=== PATIENT | male | born 1955 | race Caucasian/White ===

== ENCOUNTER 2016-06-19 10:40 | Emergency (ER) | payer MEDICARE, MEDICAID ==
[~2016-06-19] VITALS: Ht 175.3 cm; Wt 82.6 kg
--- NOTE | 2016-06-19 11:16 | PHYS DOC ---
Past Medical History Past Medical History: COPD, High Cholesterol, Hypertension, Other Additional Past Medical Histor: R ARM ROTATOR CUFF TEAR Past Surgical History: Other Additional Past Surgical Histo: BILATERAL ELBOW SX, BILATERAL HAND SX, LIPOMA REMOVED - BACK Alcohol Use: None Drug Use: None Adult General Chief Complaint Chief Complaint: NECK INJURY [facility] HPI Patient is a 61 year old male presents emergency room with persistent mid neck pain that is both midline and off to the right hand side secondary to a slip/ fall approximately 2 months ago. Patient states he also injured his right shoulder and has a history of rotator cuff problems with his right shoulder. Patient states he saw his orthopedic doctor and will have an MRI performed on his right shoulder. Patient states he has not seen his primary care doctor about his neck pain. Patient denies any previous history of spinal column or spinal cord injuries. He denies any history of neuromuscular diseases. Patient states that he has increased pain with right lateral rotation of his neck. He states that there are times at night when he will move his head too much to the right hand side and felt sudden, shooting pain to the right side of his neck that often causes him to feel nauseous. Patient states that the pain radiates up to the back of his scalp and down towards his right shoulder when this occurs. Review of Systems Review of Systems Constitutional: Denies fever or chills [] Eyes: Denies change in visual acuity, redness, or eye pain [] HENT: Denies nasal congestion or sore throat [] Respiratory: Denies cough or shortness of breath [] Cardiovascular: No additional information not addressed in HPI [] GI: Denies abdominal pain, nausea, vomiting, bloody stools or diarrhea [] : Denies dysuria or hematuria [] Musculoskeletal: Denies back pain or joint pain [] Integument: Denies rash or skin lesions [] Neurologic: Denies headache, focal weakness or sensory changes [] Endocrine: Denies polyuria or polydipsia [] Allergies Allergies Allergies Coded Allergies Type Severity Reaction Last Updated Verified morphine Allergy Intermediate Hives 06/19/16 Yes hydromorphone Adverse Reaction Intermediate Nausea and Vomiting 06/19/16 Yes Physical Exam Physical Exam Constitutional: Well developed, well nourished, no acute distress, non-toxic appearance. [] HENT: Normocephalic, atraumatic, bilateral external ears normal, oropharynx moist, no oral exudates, nose normal. [] Eyes: PERRLA, EOMI, conjunctiva normal, no discharge. [] Neck: Patient's neck is normal in appearance. There is midline and right paraspinous tenderness at the level of C3, C4 and to lesser extent C5. There is no palpable defect, deformity or active spasm. Cardiovascular:Heart rate regular rhythm, no murmur [] Lungs & Thorax: Bilateral breath sounds clear to auscultation [] Abdomen: Bowel sounds normal, soft, no tenderness, no masses, no pulsatile masses. [] Skin: Warm, dry, no erythema, no rash. [] Back: No tenderness, no CVA tenderness. [] Extremities: No tenderness, no cyanosis, no clubbing, ROM intact, no edema. [] Neurologic: Alert and oriented X 3, normal motor function, normal sensory function, no focal deficits noted. [] Psychologic: Affect normal, judgement normal, mood normal. [] Current Patient Data Vital Signs Vital Signs Date Time Temp Pulse Resp B/P Pulse Ox O2 Delivery O2 Flow Rate FiO2 06/19/16 12:55 72 16 129/81 95 Room Air 06/19/16 10:50 97.8 97.8 EKG EKG [] Radiology/Procedures Radiology/Procedures [facility] [address] [place], [place] [id number] IMAGING REPORT Signed PATIENT: NATY FULTON ACCOUNT: [id number] : 1955 LOCATION: ER AGE: 61 SEX: M EXAM STATUS: REG ER ORD. PHYSICIAN: JOSE ENRIQUE SEBASTIAN REASON: perisitent pain to C4/5 after fall 04/19/16 PROCEDURE: CERVICAL SPINE WO CONTRAST MR CERVICAL SPINE HISTORY:NO PRIORS..PT C/O NECK PAIN WITH RIGHT SHOULDER PAIN SINCE FALL MAR 2016Reason: perisitent pain to C4/5 after fall 04/19/16 / Spl. Instructions: / History: Technique: Sagittal T2, sagittal STIR, sagittal T1, and axial gradient echo imaging was obtained of the cervical spine. FINDINGS: Vertebral body heights are maintained. There is some degenerative endplate edema the level of C6-C7. Bone marrow signal is otherwise within normal limits. The cord is normal in caliber with no signal abnormality identified. Visualized soft tissues of the neck are within normal limits. At C2-3 there is bilateral facet arthropathy but no spinal stenosis. At C3-4 there is no spinal stenosis. At C4-5 there is left facet arthropathy causing mild left foraminal stenosis. There is very subtle degenerative anterolisthesis. At C5-6 there is moderate disc height loss and very subtle retrolisthesis of C5 on C6. Bilateral uncovertebral hypertrophy is noted which is more pronounced on the left causing moderate to severe left foraminal stenosis. Correlate for C6 radiculopathy symptoms. Uncovertebral hypertrophy also causes mild mass effect upon the left aspect of the cord. At C6-C7 there is degenerative disc disease with reactive endplate edema. There is bilateral uncovertebral hypertrophy causing moderate left foraminal stenosis. At C7-T1 there is no spinal stenosis. Impression: - Degenerative disc disease greatest at C5-6 where there is moderate to severe left foraminal stenosis. Correlate for left C6 radiculopathy symptoms. Details as above. - Mild degenerative disc disease at C6-C7 where there is moderate left foraminal stenosis. Correlate for left C7 radiculopathy. Electronically signed by: Po Macdonald (Jun 19, 2016 12:58:36) DICTATED and SIGNED BY: PO MACDONALD MD DATE: 06/19/16 1257 CC: JOSE ENRIQUE SEBASTIAN; UNKNOWN PCP NAME ~ Course & Med Decision Making Course & Med Decision Making Pertinent Labs and Imaging studies reviewed. (See chart for details) [] Dragon Disclaimer Dragon Disclaimer This electronic medical record was generated, in whole or in part, using a voice recognition dictation system. Departure Departure Impression: Primary Impression: Cervicalgia Disposition: HOME, SELF-CARE Condition: GOOD Referrals: UNKNOWN PCP NAME (PCP) Patient Instructions: Musculoskeletal Pain Additional Instructions: 1. The MRI of your neck today shows no abnormalities to your spinal cord or to your nerve root from the spinal cord. As discussed, there is some narrowing to the left side, but no defects or deformities to the right side when you're experiencing the pain. 2. Take the medication as prescribed. 3. Review the discharge instructions for self-care and reasons to return to the emergency department. 4. Follow-up with your primary care doctor at [facility] next week as planned. Scripts Orphenadrine Citrate 100 Mg Tablet.er100 Mg PO twice a day muscle relaxer #14 Prov:JOSE ENRIQUE SEBASTIAN 06/19/16 Prednisone 50 Mg Iyougo05 Mg PO DAILY 5 Days Prov:JOSE ENRIQUE SEBASTIAN 06/19/16 Hydrocodone/Apap 5-325 ([place] 5-325 Tablet)1 Each Tablet1 Tab PO PRN Q6HRS PRN PAIN #15 TAB Prov:JOSE ENRIQUE SEBASTIAN 06/19/16 JOSE ENRIQUE SEBASTIAN Jun 19, 2016 11:16
[2016-06-19 12:55] VITALS: BP 129/81
--- NOTE | 2016-06-19 13:00 | RAD ---
MR CERVICAL SPINE HISTORY:NO PRIORS..PT C/O NECK PAIN WITH RIGHT SHOULDER PAIN SINCE FALL MAR 2016Reason: perisitent pain to C4/5 after fall 04/19/ / Spl. Instructions: / History: Technique: Sagittal T2, sagittal STIR, sagittal T1, and axial gradient echo imaging was obtained of the cervical spine. FINDINGS: Vertebral body heights are maintained. There is some degenerative endplate edema the level of C6-C7. Bone marrow signal is otherwise within normal limits. The cord is normal in caliber with no signal abnormality identified. Visualized soft tissues of the neck are within normal limits. At C2-3 there is bilateral facet arthropathy but no spinal stenosis. At C3-4 there is no spinal stenosis. At C4-5 there is left facet arthropathy causing mild left foraminal stenosis. There is very subtle degenerative anterolisthesis. At C5-6 there is moderate disc height loss and very subtle retrolisthesis of C5 on C6. Bilateral uncovertebral hypertrophy is noted which is more pronounced on the left causing moderate to severe left foraminal stenosis. Correlate for C6 radiculopathy symptoms. Uncovertebral hypertrophy also causes mild mass effect upon the left aspect of the cord. At C6-C7 there is degenerative disc disease with reactive endplate edema. There is bilateral uncovertebral hypertrophy causing moderate left foraminal stenosis. At C7-T1 there is no spinal stenosis. Impression: - Degenerative disc disease greatest at C5-6 where there is moderate to severe left foraminal stenosis. Correlate for left C6 radiculopathy symptoms. Details as above. - Mild degenerative disc disease at C6-C7 where there is moderate left foraminal stenosis. Correlate for left C7 radiculopathy. Electronically signed by: Jatin Lamas (Jun 19, 2016 12:58:36)
[2016-06-19] MEDS ORDERED: HYDR-971 PO (13:18)
[2016-06-19] MEDS ORDERED: PRED50TA PO (13:18)
[2016-06-19] MEDS ORDERED: ORPH100T PO (13:18)
== END 2016-06-19 13:25 | disposition home or self-care (01) ==
LOC: ER 10:40
DX: M54.2 Cervicalgia (principal); M25.511 Pain in right shoulder; M48.02 Spinal stenosis, cervical region; M50.322 Other cervical disc degeneration at C5-C6 level; M50.323 Other cervical disc degeneration at C6-C7 level; E78.00 Pure hypercholesterolemia, unspecified; I10 Essential (primary) hypertension; J44.9 Chronic obstructive pulmonary disease, unspecified; Z98.890 Other specified postprocedural states; Z88.5 Allergy status to narcotic agent
CPT/HCPCS: 72141; 99284-25

== ENCOUNTER 2018-07-05 19:27 | Emergency (ER) | payer MEDICAID, MEDICARE ==
[~2018-07-05] VITALS: Ht 175.3 cm; Wt 81.6 kg
[~2018-07-05 19:27] MED LIST: HYDR-3164 PO; ORPH100T PO; PRED50TA PO
--- NOTE | 2018-07-05 21:57 | RAD ---
AP chest x-ray HISTORY: Fever and cough. FINDINGS: Heart size is normal. Mediastinal silhouette is normal. No pneumothorax, pulmonary opacities or pleural effusions. The bones are unremarkable. IMPRESSION: No acute process. Electronically signed by: Zac Schaefer MD (07/05/2018 9:54 PM) [facility] [place]
[2018-07-05] MEDS ORDERED: IPRATRPIUM/ALBUTEROL 0.5/2.5MG 3 ML NEBU. NEB ONE (22:00)
[2018-07-05] MEDS ORDERED: predniSONE 10 MG TABLET PO ONE (22:00)
[2018-07-05] MEDS ORDERED: DOXY100T PO (22:13)
[2018-07-05] MEDS ORDERED: PRED50TA PO (22:13)
[2018-07-05] MEDS ORDERED: ALBU2.5V8 INH (22:13)
[2018-07-05 22:35] LABS: INFLUENZA A PATIENT NEGATIVE (NEGATIVE); INFLUENZA B PATIENT NEGATIVE (NEGATIVE); RSV PATIENT NEGATIVE (NEGATIVE)
[2018-07-05 22:43] VITALS: BP 133/79
--- NOTE | 2018-07-05 22:50 | PHYS DOC ---
Past Medical History Past Medical History: COPD, High Cholesterol, Hypertension, Other Additional Past Medical Histor: R ARM ROTATOR CUFF TEAR, NEUROPATHY Past Surgical History: Other Additional Past Surgical Histo: BILATERAL ELBOW SX, BILATERAL HAND SX, LIPOMA REMOVED - BACK Alcohol Use: None Drug Use: None Adult General Chief Complaint Chief Complaint: FLU SYMPTOM HPI HPI Patient is a 63 yo male who presents with complaint of chest congestion and cough since midnight. Patient reports that yesterday afternoon he took care of his 3mo old grandson for a few hours but began feeling bad after the child went home. He describes his symptoms as chest tightness, clear nasal dc, cough that is intermittently productive of green sputum. He says his temperature at home was 99.5. Patient denies chest pain, shortness of breath, abdominal pain, dysuria, weakness, sick contacts or recent international travel. He does report he is a former smoker who quit 10 years ago. Prior to quitting he smoked 3packs/ day. He reports he has HTN, DM, and hyperlipidemia. Review of Systems Review of Systems Constitutional: Admits temperature 99.5F Eyes: Denies change in visual acuity, redness, or eye pain [] HENT: Denies nasal congestion or sore throat [] Respiratory: Admits cough and chest tightness IWTH COUGH ONLY "I CANT GET THE MUCUS UP" Cardiovascular:Denies chest pain. GI: Denies abdominal pain, nausea, vomiting, bloody stools or diarrhea [] : Denies dysuria or hematuria [] Musculoskeletal: Denies back pain or joint pain [] Integument: Denies rash or skin lesions [] Neurologic: Denies headache, focal weakness or sensory changes [] Endocrine: Denies polyuria or polydipsia [] All other systems were reviewed and found to be within normal limits, except as documented in this note. Current Medications Current Medications Current Medications Medications (Trade) Dose Ordered Sig/Gerardo Start Time Stop Time Status Last Admin Dose Admin Albuterol/ Ipratropium (Duoneb) 3 ml 1X ONCE 07/05/18 22:00 07/05/18 22:01 DC 07/05/18 22:00 3 ML Prednisone (Prednisone) 50 mg 1X ONCE 07/05/18 22:00 07/05/18 22:01 DC 07/05/18 21:58 50 MG Allergies Allergies Allergies Coded Allergies Type Severity Reaction Last Updated Verified morphine Allergy Intermediate Hives 2/22/17 Yes hydromorphone Adverse Reaction Intermediate Nausea and Vomiting 06/19/16 Yes Physical Exam Physical Exam Constitutional: Well developed, well nourished, no acute distress, non-toxic appearance. [] HENT: Normocephalic, atraumatic, bilateral external ears normal Eyes: PERRLA Neck: Normal range of motion, no tenderness,, no masses or nodes appreciated Cardiovascular:Heart rate regular rhythm, no murmur [] Lungs & Thorax: mild scattered wheezes in all lung short. No rhales or rhonchi appreciated. Breath sounds present all lung short. Abdomen: Soft, nontender, no masses appreciated Skin: Warm, dry, no erythema, no rash. [] Back: No tenderness] Extremities: No tenderness, no cyanosis, no clubbing, ROM intact, no edema. [] Neurologic: Alert and oriented X 3, normal motor function, normal sensory function, no focal deficits noted. [] Current Patient Data Vital Signs Vital Signs Date Time Temp Pulse Resp B/P (MAP) Pulse Ox O2 Delivery O2 Flow Rate FiO2 07/05/18 22:43 81 20 133/79 (97) 95 Room Air 07/05/18 21:00 98.0 98.0 Lab Values Laboratory Tests Test 07/05/18 22:00 Influenza Type A Antigen Negative (NEGATIVE) Influenza Type B Antigen Negative (NEGATIVE) POC RSV Rapid Screen Negative (NEGATIVE) EKG EKG [] Radiology/Procedures Radiology/Procedures [PROCEDURE: PORTABLE CHEST 1V AP chest x-ray HISTORY: Fever and cough. FINDINGS: Heart size is normal. Mediastinal silhouette is normal. No pneumothorax, pulmonary opacities or pleural effusions. The bones are unremarkable. IMPRESSION: No acute process. Electronically signed by: Zac Schaefer MD (07/05/2018 9:54 PM) [facility] DICTATED and SIGNED BY: ZAC SCHAEFER MD DATE: 07/05/182153 ] Course & Med Decision Making Course & Med Decision Making Patient is a63 yo male former smoker who presents with complaint of chest tightness and cough since midnight. He reports he has no sick contacts but did take care of his 3 mo grandson yesterday afternoon. On physical exam patient o2 sat is 95% RA and lung auscultation reveals scattered wheezes in all lung short. Remainder of physical exam unremarkable. As patient is a former heavy smoker and has a cough with green sputum, felt it was appropriate to complete CXR which was unremarkable. Patient reports he had flu shot this season, and influenza A/B were negative. As patient had exposure to young child, felt it was appropriate to test patient for RSV, which was also negative. Discussed with patient that he likely has a viral illness but the chances of having a bacterial illness are increased d/t smoking hx and green sputum. Treated patient with 1 breathing treatment in ED which was well tolerated. Patient will be dc home with doxycycline, proair inhaler, and prednisone. Informated patient that he will need to follow up with PCP or that he could return to ED if symptoms worsen. Patient verbalized agreement and understanding with the plan. Dragon Disclaimer Dragon Disclaimer This electronic medical record was generated, in whole or in part, using a voice recognition dictation system. Departure Departure Impression: Primary Impression: Bronchitis Disposition: 01 HOME, SELF-CARE Condition: STABLE Patient Instructions: Bronchitis, [id number] Scripts Doxycycline Hyclate (DOXYCYCLINE HYCLATE) 100 Mg Tablet 1 TAB PO BID, #20 TAB Prov: MORA SCHRADER MD 07/05/18 Prednisone (PREDNISONE) 50 Mg Tablet 1 TAB PO DAILY, #5 TAB Prov: MORA SCHRADER MD 07/05/18 Albuterol Sulfate (PROAIR HFA INHALER) 8.5 Gm Hfa.aer.ad 1 PUFF INH PRN Q6HRS PRN for SHORTNESS OF BREATH, #1 INHALER 0 Refills Prov: MORA SCHRADER MD 07/05/18 MORA SCHRADER MD Jul 05, 2018 22:50
== END 2018-07-05 22:45 | disposition home or self-care (01) ==
LOC: ER 19:27
DX: J44.9 Chronic obstructive pulmonary disease, unspecified (principal); E78.00 Pure hypercholesterolemia, unspecified; I10 Essential (primary) hypertension; Z88.5 Allergy status to narcotic agent
CPT/HCPCS: 71045; 87420; 87804; 94640; 99284; J7512; J7620

== ENCOUNTER 2021-02-02 13:01 | Emergency (ER) | payer MEDICARE ==
[~2021-02-02] VITALS: Ht 175.3 cm; Wt 77.2 kg
[~2021-02-02 13:01] MED LIST changes: +ALBU2.5V8 INH; +DOXY100T PO
[2021-02-02 13:35] VITALS: BP 157/81
--- NOTE | 2021-02-02 13:42 | PHYS DOC ---
Past Medical History Past Medical History: COPD, High Cholesterol, Hypertension, Other Additional Past Medical Histor: R ARM ROTATOR CUFF TEAR, NEUROPATHY (LILIBETH JURADO APRN) Past Surgical History: Other Additional Past Surgical Histo: BILATERAL ELBOW SX, BILATERAL HAND SX, LIPOMA REMOVED - BACK (LILIBETH JURADO APRN) Smoking Status: Former Smoker Alcohol Use: None Drug Use: None (LILIBETH JURADO APRN) General Adult EDM: Chief Complaint: HAND PROBLEM HPI: HPI: Patient is a 65-year-old male with chief complaint today of right hand pain. Patient states today he was working with a concrete drill and the drill jerked back and hyperextended his fourth finger, he states he felt a pop, and had immediate pain and swelling. Patient states he is right-hand dominant and does have a history of multiple surgeries on his right hand due to a fracture in the past. (LILIBETH JURADO APRN) Review of Systems: Review of Systems: Constitutional: Denies fever or chills. [] Eyes: Denies change in visual acuity. [] HENT: Denies nasal congestion or sore throat. [] Respiratory: Denies cough or shortness of breath. [] Cardiovascular: Denies chest pain or edema. [] GI: Denies abdominal pain, nausea, vomiting, bloody stools or diarrhea. [] : Denies dysuria. [] Musculoskeletal: Right hand pain and swelling Integument: Denies rash. [] Neurologic: Denies headache, focal weakness or sensory changes. [] Endocrine: Denies polyuria or polydipsia. [] Lymphatic: Denies swollen glands. [] Psychiatric: Denies depression or anxiety. [] (LILIBETH JURADO NETWORK SECURITY ANALYST) Heart Score: C/O Chest Pain: N/A Risk Factors: Risk Factors: DM, Current or recent (<one month) smoker, HTN, HLP, family history of CAD, obesity. Risk Scores: Score 0 - 3: 2.5% MACE over next 6 weeks - Discharge Home Score 4 - 6: 20.3% MACE over next 6 weeks - Admit for Clinical Observation Score 7 - 10: 72.7% MACE over next 6 weeks - Early Invasive Strategies (LILIBETH JURADO APRN) Allergies: Allergies: Allergies Coded Allergies Type Severity Reaction Last Updated Verified morphine Allergy Intermediate Hives 06/19/16 Yes hydromorphone Adverse Reaction Intermediate Nausea and Vomiting 06/19/16 Yes (LILIBETH JURADO APRN) Physical Exam: PE: Constitutional: Well developed, well nourished, no acute distress, non-toxic appearance. [] HENT: Normocephalic, atraumatic, bilateral external ears normal, oropharynx moist, no oral exudates, nose normal. [] Eyes: PERRLA, EOMI, conjunctiva normal, no discharge. [] Neck: Normal range of motion, no tenderness, supple, no stridor. [] Cardiovascular:Heart rate regular rhythm, no murmur [] Lungs & Thorax: Bilateral breath sounds clear to auscultation [] Abdomen: Bowel sounds normal, soft, no tenderness, no masses, no pulsatile masses. [] Skin: Warm, dry, no erythema, no rash. [] Back: No tenderness, no CVA tenderness. [] Extremities: Right hand swelling noted with decreased range of motion in the fourth and fifth fingers due to pain, cap refill on the right fourth and fifth finger less than 2 seconds, sensory intact distal fourth and fifth finger on the right hand, patient does have limited range of motion of the right wrist due to pain. Numerous scars noted on right hand due to previous surgeries Neurologic: Alert and oriented X 3, normal motor function, normal sensory function, no focal deficits noted. [] Psychologic: Affect normal, judgement normal, mood normal. [] (LILIBETH JURADO APRN) Current Patient Data: Vital Signs: Vital Signs Date Time Temp Pulse Resp B/P (MAP) Pulse Ox O2 Delivery O2 Flow Rate FiO2 02/02/21 13:35 97.8 95 20 157/81 (106) 95 Room Air 97.8 Vital Signs Date Time Temp Pulse Resp B/P (MAP) Pulse Ox O2 Delivery O2 Flow Rate FiO2 02/02/21 13:35 97.8 95 20 157/81 (106) 95 Room Air 97.8 (YOUNG BOSS DO) EKG: EKG: [] (LILIBETH JURADO APRN) Radiology/Procedures: Radiology/Procedures: PROCEDURE: HAND RIGHT 3V EXAM: Right hand, 3 views; right wrist, 3 views. HISTORY: Pain and swelling. COMPARISON: None. FINDINGS: 3 views of the right hand and wrist are obtained. There is a mildly displaced oblique fracture of the fourth metacarpal with approximately 1 cortical width displacement along the fracture line. There has been resection of the distal right ulna. First interphalangeal joint and second through fourth distal interphalangeal joint spurring. There is also spurring involving the base of the first metacarpal. IMPRESSION: 1. Displaced fourth metacarpal fracture. 2. 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 [] (LILIBETH JURADO APRN) Course & Med Decision Making: Course & Med Decision Making Pertinent Labs and Imaging studies reviewed. (See chart for details) Reviewed radiology results with Dr. Boss, recommended call to for hand surgery. 1430 transfer team contacted for hand coverage and will call us back [] 1500 spoke to patient patient states he has seen Dr. Babcock at the [facility] before for carpal tunnel and other hand injuries in the past. Spoke to Dr. Gera Boss feels comfortable with patient following up with Dr. Babcock. Patient to wear splint until follow-up Tylenol and/or ibuprofen as labeled directed for pain Follow-up next week with hand surgeon (LILIBETH JURADO APRN) Course & Med Decision Making I have reviewed and was available for consultation in the emergency department for this patient that was seen by midlevel provider. Agree with plan. Young Boss DO (YOUNG BOSS DO) Johnny Disclaimer: Johnny Disclaimer: This electronic medical record was generated, in whole or in part, using a voice recognition dictation system. (LILIBETH JURADO APRN) Departure Departure Impression: Primary Impression: Hand fracture, right Qualified Codes: S62.91XA - Unspecified fracture of right wrist and hand, initial encounter for closed fracture Additional Impression: Fx metacarpal shaft-closed Qualified Codes: S62.324A - Displaced fracture of shaft of fourth metacarpal bone, right hand, initial encounter for closed fracture Disposition: HOME / SELF CARE / HOMELESS Condition: STABLE Referrals: UNKNOWN PCP NAME (PCP) LUCIANO SHEIKH MD Patient Instructions: Cast or Splint Care, [id number], Hand Fracture, Metacarpals, [id number] Additional Instructions: Keep splint clean and dry, do not remove Follow-up with Dr. Babcock next week for follow-up Ice and elevate 20 minutes on 3-4 times daily over the next 3 to 5 days Tylenol and/or ibuprofen ibuprofen as needed for pain Return here for increased pain tenderness LILIBETH JURADO APRN Feb 02, 2021 13:42 YOUNG BOSS DO Feb 05, 2021 06:37
--- NOTE | 2021-02-02 13:56 | RAD ---
EXAM: Right hand, 3 views; right wrist, 3 views. HISTORY: Pain and swelling. COMPARISON: None. FINDINGS: 3 views of the right hand and wrist are obtained. There is a mildly displaced oblique fract ure of the fourth metacarpal with approximately 1 cortical width displacement along the fracture line . There has been resection of the distal right ulna. First interphalangeal joint and second through f ourth distal interphalangeal joint spurring. There is also spurring involving the base of the first m etacarpal. IMPRESSION: 1. Displaced fourth metacarpal fracture. 2. 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 Electronically signed by: Akiko Trevino MD (02/02/2021 1:53 PM) [id number]
== END 2021-02-02 15:22 | disposition home or self-care (01) ==
LOC: ER 13:01
DX: S62.324A Displaced fracture of shaft of fourth metacarpal bone, right hand, initial encounter for closed fracture (principal); J44.9 Chronic obstructive pulmonary disease, unspecified; E78.00 Pure hypercholesterolemia, unspecified; I10 Essential (primary) hypertension; Z88.5 Allergy status to narcotic agent; X50.9XXA Other and unspecified overexertion or strenuous movements or postures, initial encounter; Y93.89 Activity, other specified; Y92.89 Other specified places as the place of occurrence of the external cause; Y99.8 Other external cause status
CPT/HCPCS: 29125; 73110; 73130; 99284